=== PATIENT | female | born 1960 | race African-American/Black ===

== ENCOUNTER 2018-03-17 14:21 | Emergency (ER) | payer SELFPAY ==
[2018-03-17] MEDS ORDERED: LIDOCAINE WITH 8.4% SOD BICARB 3 ML DISP.SYRIN. INJ ONE (15:15)
[2018-03-17] MEDS ORDERED: SULF1TAB24 PO (15:31)
--- NOTE | 2018-03-17 15:33 | PHYS DOC ---
Adult General Chief Complaint Chief Complaint: INSECT BITE HPI HPI Patient is a 57 year old female who presents with an abscess to her neck. It has not started to drain and she states that she is unable to open it. She states that she smoked crack yesterday. She denies fever, nausea or vomiting. Review of Systems Review of Systems Constitutional: Denies fever or chills [] Respiratory: Denies cough or shortness of breath [] Cardiovascular: No additional information not addressed in HPI [] Musculoskeletal: Denies back pain or joint pain [] Integument: See history of present illness Neurologic: Denies headache, focal weakness or sensory changes [] Endocrine: Denies polyuria or polydipsia [] All other systems were reviewed and found to be within normal limits, except as documented in this note. Current Medications Current Medications Current Medications Medications (Trade) Dose Ordered Sig/Nichelle Start Time Stop Time Status Last Admin Dose Admin Lidocaine/Sodium Bicarbonate (Buffered Lidocaine 1%) 3 ml 1X ONCE 03/17/18 15:15 03/17/18 15:19 DC 03/17/18 15:23 3 ML Allergies Allergies Allergies Coded Allergies Type Severity Reaction Last Updated Verified No Known Drug Allergies 03/17/18 No Physical Exam Physical Exam Constitutional: Well developed, well nourished, no acute distress, non-toxic appearance. [] Cardiovascular:Heart rate regular rhythm, no murmur [] Lungs & Thorax: Bilateral breath sounds clear to auscultation [] Abdomen: Bowel sounds normal, soft, no tenderness, no masses, no pulsatile masses. [] Skin: Grape size abscess to the patient's left frontal neck that is beginning to spontaneously drain Neurologic: Alert and oriented X 3, normal motor function, normal sensory function, no focal deficits noted. [] Psychologic: Affect normal, judgement normal, mood normal. [] EKG EKG [] Radiology/Procedures Radiology/Procedures Abscess Incision and Drainage with irrigation by me: Location: neck Anesthesia: Local 1% Lidocaine Technique: The abscess was opened with an 11 blade and purulent drainage was expressed from the lesion Packing: None Complications: Neurovascularly intact post procedure 48 hour wound check. Scar minimization instructions given. Course & Med Decision Making Course & Med Decision Making Pertinent Labs and Imaging studies reviewed. (See chart for details) [] Dragon Disclaimer Dragon Disclaimer This electronic medical record was generated, in whole or in part, using a voice recognition dictation system. Departure Departure Impression: Primary Impression: Abscess Disposition: 01 HOME, SELF-CARE Condition: STABLE Referrals: YENY PICKETT (PCP) Patient Instructions: Abscess Additional Instructions: Follow-up with your primary care provider in 3 days for recheck. Take the antibiotics as directed. If worsening return to the emergency department. Scripts Sulfamethoxazole/Trimethoprim (BACTRIM DS TABLET) 1 Each Tablet 1 TAB PO BID, #20 TAB Prov: SHILA KIRKPATRICK APRN 03/17/18 SHILA KIRKPATRICK APRN Mar 17, 2018 15:33
== END 2018-03-17 15:45 | disposition home or self-care (01) ==
LOC: ER 14:21
DX: L02.11 Cutaneous abscess of neck (principal)
CPT/HCPCS: 10060; 99283